=== PATIENT | male | born 1970 ===

== ENCOUNTER 2025-02-11 15:00 | Outpatient (RCR) | payer OTHER, SELFPAY ==
[2024-11-17 08:56] VITALS: PULSE 75
== END 2025-02-15 15:14 | disposition home or self-care (01) ==
LOC: ANHCPREHAB 15:00
PROVIDERS: PCP Internal Medicine Cardiovascular Disease; Visit Provider Internal Medicine Cardiovascular Disease
DX: I20.89 Other forms of angina pectoris (principal); Z95.1 Presence of aortocoronary bypass graft
CPT/HCPCS: 93798